=== PATIENT | female | born 1975 | race American Indian/Alaskan Native ===

== ENCOUNTER 2022-03-07 22:46 | Emergency (ER) | payer MEDICAID, OTHER ==
[2022-03-07 23:04] VITALS: BP 136/79
--- NOTE | 2022-03-08 11:16 | Electrocardiograph Report ---
[facility] Test Date: 2022-03-07 Test Time: 23:08:46 Pat Name: MADISON MEJIA Department: Room: Gender: F Special Effects Person: VENUS : 1975 Requested By: DEMOND NAPOLES Order Number: [id number] Reading MD: Vahe Chatterjee Measurements Intervals [place] Rate: 85 P: 66 RI: 169 QRS: 83 QRSD: 75 T: 54 QT: 367 QTc: 437 Interpretive Statements Sinus rhythm Probable left atrial enlargement No previous ECG available for comparison Electronically Signed On 03-08-2022 11:16:17 EDT by Vahe Chatterjee
== END 2022-03-08 13:21 | disposition left against medical advice (07) ==
LOC: ED 22:46
DX: R00.2 Palpitations (principal); N63.0 Unspecified lump in unspecified breast; Z53.21 Procedure and treatment not carried out due to patient leaving prior to being seen by health care provider
CPT/HCPCS: 93005